=== PATIENT | male | born 1940 | race African-American/Black ===

== ENCOUNTER 2019-06-11 08:07 | Observation (INO) | payer MEDICARE ==
[~2019-06-11] VITALS: Ht 182.9 cm; Wt 132.6 kg
[2019-06-12 12:20] VITALS: BP 164/82
== END 2019-06-12 19:51 | disposition home or self-care (01) ==
LOC: ED 10:15 → INTOOBSV 11:24 → EDIP 11:24 → 5SO 13:00
PROVIDERS: ADMIT Hospitalist; ATTEND Hospitalist
DX: R07.89 Other chest pain (principal); R55 Syncope and collapse; N19 Unspecified kidney failure; I10 Essential (primary) hypertension; I25.10 Atherosclerotic heart disease of native coronary artery without angina pectoris; E78.5 Hyperlipidemia, unspecified; Z88.0 Allergy status to penicillin; Z79.82 Long term (current) use of aspirin; Z79.899 Other long term (current) drug therapy
CPT/HCPCS: 36415; 71045; 78452; 80048; 80053; 82040; 83735; 84100; 84439; 84484; 85025; 85379; 93005; 93017; 93306; 93880; 94640; 96361; 96365; 96372; 99284; A9502; C9898; G0378; J1650; J2785; J3475; J7030; J7626; J7644